=== PATIENT | male | born 1945 | race Caucasian/White ===

== ENCOUNTER 2018-04-05 00:11 | Emergency (ER) | payer MEDICARE, MEDICAID ==
--- NOTE | 2018-04-05 00:55 | EDM.PDOC ---
ED HPI GENERAL MEDICAL PROBLEM - General Chief Complaint: General Stated Complaint: fall Time Seen by Provider: 04/05/18 00:44 Source of Information: Reports: Patient, Other ([place]) History Limitations: Reports: No Limitations - History of Present Illness INITIAL COMMENTS - FREE TEXT/NARRATIVE: Patient found on floor next to bed at [place]. Says he was trying to roll over and slipped out of bed. Initially had told staff that he had some left upper leg discomfort. He just wanted staff to help him back into bed but they sent him to ER for evaluation. He has no other complaints. - Related Data Allergies Allergy/AdvReac Type Severity Reaction Status Date / Time No Known Allergies Allergy Verified 04/05/18 00:29 Home Meds: Home Meds ARIPiprazole [Abilify] 2 mg PO DAILY 04/05/18 [History] Acetaminophen 2 tab PO Q4HR PRN 04/05/18 [History] Acetaminophen [Arthritis Pain Relief] 650 mg PO BID 04/05/18 [History] Bicalutamide [Casodex] 150 mg PO DAILY 04/05/18 [History] Desonide 1 applic TOP DAILY PRN 04/05/18 [History] Dextran 70/Hypromellose [Artificial Tears] 1 - 2 drop EYEBOTH ASDIRECTED PRN [History] Dextran 70/Hypromellose [Artificial Tears] 2 drop EYEBOTH Q4H PRN 04/05/18 [ History] Docusate Sodium [Colace] 100 mg PO BID 04/05/18 [History] FLUoxetine HCl [Prozac] 80 mg PO DAILY 04/05/18 [History] Gabapentin [Neurontin] 600 mg PO BID 04/05/18 [History] Lisinopril 2.5 mg PO DAILY 04/05/18 [History] Methyl Salicylate/Menthol [Muscle Rub] 1 applic TOP QID PRN 04/05/18 [History] Metoprolol Tartrate 25 mg PO BID 04/05/18 [History] Morphine [Morphine 20 MG/ML Soln] 2.5 mg BUCCAL Q1H PRN 04/05/18 [History] Morphine [Morphine 20 MG/ML Soln] 2.5 mg BUCCAL TID 04/05/18 [History] Nystatin 1 applic TOP ASDIRECTED PRN 04/05/18 [History] Triamcinolone Acetonide [Triamcinolone Acetonide 0.1% Crm] 1 applic TOP BID PRN 04/05/18 [History] buPROPion HCl [Wellbutrin Xl] 300 mg PO DAILY 04/05/18 [History] metFORMIN [Glucophage] 500 mg PO BIDMEALS 04/05/18 [History] traZODone HCl [Trazodone HCl] 300 mg PO BEDTIME 04/05/18 [History] Past Medical History HEENT History: Reports: Allergic Rhinitis, Cataract, Impaired Vision, Other ( See Below) (dry eyes) Cardiovascular History: Reports: Blood Clots/VTE/DVT, CAD, High Cholesterol, Hypertension Respiratory History: Reports: Sleep Apnea Gastrointestinal History: Reports: Chronic Constipation Musculoskeletal History: Reports: Back Pain, Chronic, Osteoarthritis, Other ( See Below) (weakness, falls. 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) Dermatologic History: Reports: Other (See Below) (candidal infection of nails) - Infectious Disease History Infectious Disease History: Reports: MRSA Social & Family History - Tobacco Use Smoking Status *Q: Never Smoker Second Hand Smoke Exposure: No - Caffeine Use Caffeine Use: Reports: Soda Other Caffeine Use: diet mountain dew - Recreational Drug Use Recreational Drug Use: No ED ROS GENERAL - Review of Systems Review Of Systems: See Below (no acute changes from baseline) Constitutional: Reports: No Symptoms HEENT: Reports: No Symptoms Respiratory: Reports: No Symptoms Cardiovascular: Reports: No Symptoms GI/Abdominal: Reports: No Symptoms : Reports: No Symptoms Musculoskeletal: Reports: No Symptoms (no acute change from baseline) Skin: Reports: No Symptoms. Denies: Wound Neurological: Reports: No Symptoms. Denies: Headache Psychiatric: Reports: No Symptoms ED EXAM, GENERAL - Physical Exam Exam: See Below Exam Limited By: No Limitations General Appearance: Alert, No Apparent Distress, Obese Eye Exam: Bilateral Eye: EOMI, PERRL Ears: Normal External Exam Nose: No: Nasal Tenderness, Nasal Deformity, Nasal Swelling Throat/Mouth: Normal Lips, Normal Voice, No Airway Compromise Head: Atraumatic, Normocephalic Neck: Supple, Non-Tender, Other (small mass noted right side of neck under jaw with accompanying cutaneous change--patient has history of parotid gland tumor) Respiratory/Chest: No Respiratory Distress, Lungs Clear, Normal Breath Sounds, No Accessory Muscle Use, Chest Non-Tender Cardiovascular: Regular Rate, Rhythm, No Murmur GI/Abdominal: Soft, Non-Tender, Pelvis Stable (Male) Exam: Deferred Rectal (Males) Exam: Deferred Back Exam: No: CVA Tenderness (L), CVA Tenderness (R), Muscle Spasm, Paraspinal Tenderness, Vertebral Tenderness Extremities: Normal Inspection, Normal Range of Motion, Non-Tender, No Pedal Edema, Normal Capillary Refill Neurological: Alert, Oriented, CN II-XII Intact, Normal Cognition, No Motor/ Sensory Deficits Psychiatric: Normal Affect, Normal Mood Skin Exam: Warm, Dry, Intact, Normal Color. No: Ecchymosis (no acute bruising noted) Course - Vital Signs Last Recorded V/S: Last Vital Signs Temp 36.0 C 04/05/18 00:16 Pulse 61 04/05/18 00:16 Resp 16 04/05/18 00:16 BP 106/59 L 04/05/18 00:16 Pulse Ox 96 04/05/18 00:16 - Re-Assessments/Exams Free Text/Narrative Re-Assessment/Exam: 04/05/18 00:54 Patient is currently without any acute complaints. Continues to deny injuries. Plan at this time is to let him return back to [place]. To follow up as needed if new complaints noted later. Departure - Departure Time of Disposition: 00:56 Disposition: DC/Tfer to SNF 03 Condition: Good Clinical Impression: Fall from bed Qualifiers: Encounter type: initial encounter Qualified Code(s): W06.XXXA - Fall from bed, initial encounter - Discharge Information *PRESCRIPTION DRUG MONITORING PROGRAM REVIEWED*: Not Applicable *COPY OF PRESCRIPTION DRUG MONITORING REPORT IN PATIENT SIRISHA: Not Applicable Forms: ED Department Discharge Additional Instructions: Be careful changing position in bed! Follow up as needed if there are changes noted later.
== END 2018-04-05 01:50 ==
LOC: LL.ED 00:11
DX: M79.605 Pain in left leg (principal); I10 Essential (primary) hypertension; E11.9 Type 2 diabetes mellitus without complications; F32.9 Major depressive disorder, single episode, unspecified; Z79.84 Long term (current) use of oral hypoglycemic drugs; Z79.899 Other long term (current) drug therapy; W06.XXXA Fall from bed, initial encounter
CPT/HCPCS: 99285